=== PATIENT | female | born 1975 | race Caucasian/White ===

== ENCOUNTER 2024-01-03 13:07 | Outpatient (OUT) | payer OTHER, SELFPAY ==
[2024-01-03 13:45] LABS: Basophils Absolute Auto 0.1 10^3/uL (0.0-0.1); Basophils Percent Auto 0.6 % (0.2-2.0); Eosinophils Absolute Auto 0.2 10^3/uL (0.0-0.7); Eosinophils Percent Auto 2.4 % (0.9-7.0); Hematocrit 35.2 % (36.0-48.0); Hemoglobin 10.7 g/dL (12.0-16.0); Immature Granulocytes Abs Auto 0.02 10^3/uL (0.00-0.03); Immature Granulocytes Pct Auto 0.3 % (0.0-0.5); Lymphocytes Absolute Auto 2.5 10^3/uL (1.2-3.8); Lymphocytes Percent Auto 31.2 % (20.5-60.0); Mean Corpuscular HGB Conc 30.4 g/dL (29.9-35.2); Mean Corpuscular Volume 75.7 fL (81.0-99.0); Mean Platelet Volume 10.3 fL (9.5-13.5); Monocytes Absolute Auto 0.6 10^3/uL (0.3-0.8); Monocytes Percent Auto 7.6 % (1.7-12.0); Neutrophils Absolute Auto 4.6 10^3/uL (1.4-6.5); Neutrophils Percent Auto 57.9 % (43.0-75.0); Platelet Count 335 10^3/uL (150-450); Red Blood Count 4.65 10^6/uL (4.20-5.40); Red Cell Distribution Width 16.2 % (11.0-15.0); White Blood Count 7.9 10^3/uL (4.0-11.0)
[2024-01-03 14:57] LABS: Free T4 0.85 ng/dL (0.76-1.46)
[2024-01-03 15:04] LABS: Anion Gap 11.5; Calcium 8.8 mg/dL (8.5-10.1); Carbon Dioxide 28.5 mmol/L (21.0-32.0); Chloride 101 mmol/L (98-107); Estimated GFR (African America >60 (>=60); Estimated GFR (Non-African Ame >60 (>=60); Glucose 87 mg/dL (74-106); Sodium 137 mmol/L (136-145); Thyroid Stimulating Hormone 6.114 uIU/mL (0.358-3.740)
== END 2024-01-03 13:08 | disposition home or self-care (01) ==
PROVIDERS: PCP Family Medicine; Visit Provider Family Medicine
DX: Z00.00 Encounter for general adult medical examination without abnormal findings (principal); E03.9 Hypothyroidism, unspecified; T14.8XXA Other injury of unspecified body region, initial encounter
CPT/HCPCS: 36415; 80048; 84439; 84443; 85025

== ENCOUNTER 2024-07-29 07:06 | Outpatient (OUT) | payer OTHER, SELFPAY ==
--- NOTE | 2024-07-29 07:40 | MM_ITS ---
Patient Name: CJ NEVAREZ MR#: [id number] : 1975 Exam Date: 07/29/2024 Ordering Doctor: DR Ro Toscano M.D. RADIOLOGY REPORT PROCEDURE: MM TOMOSYNTHESIS SCREENING BI COMPARISON: MG MAMM LT UNI W CAD DIG, 09/28/2013. MG MAMM KIMANI DIAG W CAD DIG, 12/25/2012. MG MAMM LT UNI W CAD DIG, 03/20/2001. INDICATIONS: Screening, Z12.31 Calculator Name NCI Breast Cancer Risk Assessment Tool 5 Year Breast Cancer Risk 1.10% Lifetime Breast Cancer Risk 9.90% Personal Breast Cancer No Personal Ovarian Cancer No Treatments None Family Cancers Grandmother-maternal with breast cancer at age ~50; Grandfather-maternal with lung cancer at age ~70. LOCATION: [facility] BREAST COMPOSITION: The breasts are heterogeneously dense,which may obscure small masses. FINDINGS: DIAGNOSTIC CATEGORY 1--NEGATIVE. RIGHT BREAST: No significant suspicious finding. LEFT BREAST: No significant suspicious finding. RECOMMENDATIONS: ROUTINE MAMMOGRAM AND CLINICAL EVALUATION IN 12 MONTHS. PLEASE NOTE: A NORMAL MAMMOGRAM DOES NOT EXCLUDE THE POSSIBILITY OF BREAST CANCER. A CLINICALLY SUSPICIOUS PALPABLE LUMP SHOULD BE BIOPSIED. Dictated by: Gustabo Villagran M.D. on 07/31/2024 at 10:46 Approved by: Gustabo Villagran M.D. on 07/31/2024 at 10:50
== END 2024-07-29 07:07 | disposition home or self-care (01) ==
LOC: MAMMO 07:06
PROVIDERS: PCP Family Medicine; Visit Provider Family Medicine
DX: Z12.31 Encounter for screening mammogram for malignant neoplasm of breast (principal); E03.9 Hypothyroidism, unspecified; Z80.3 Family history of malignant neoplasm of breast; Z80.1 Family history of malignant neoplasm of trachea, bronchus and lung
CPT/HCPCS: 36415; 77063; 77067; 84439; 84443

== ENCOUNTER 2024-07-29 07:32 | Outpatient (OUT) | payer OTHER, SELFPAY ==
[2024-07-29 08:27] LABS: Thyroid Stimulating Hormone 3.919 uIU/mL (0.358-3.740)
[2024-07-29 08:54] LABS: Free T4 1.01 ng/dL (0.76-1.46)
== END 2024-07-29 07:33 | disposition home or self-care (01) ==
PROVIDERS: PCP Family Medicine; Visit Provider Family Medicine
DX: E03.9 Hypothyroidism, unspecified (principal)
CPT/HCPCS: 36415; 84439; 84443

== ENCOUNTER 2024-10-20 12:23 | Outpatient (OUT) | payer OTHER, SELFPAY ==
[2024-10-20 13:40] LABS: Free T4 1.31 ng/dL (0.76-1.46)
[2024-10-20 14:26] LABS: Anion Gap 10.7; Carbon Dioxide 31.2 mmol/L (21.0-32.0); Chloride 101 mmol/L (98-107); Potassium 3.9 mmol/L (3.5-5.1); Sodium 139 mmol/L (136-145)
[2024-10-20 14:27] LABS: Alanine Aminotransferase 23 U/L (14-59); Albumin Globulin Ratio 0.9; Albumin Level 3.6 g/dL (3.4-5.0); Alkaline Phosphatase 97 U/L (46-116); Aspartate Amino Transferase 15 U/L (15-37); BUN Creatinine Ratio 10.5; Bilirubin Total 0.3 mg/dL (0.2-1.0); Calcium 9.2 mg/dL (8.5-10.1); Chol HDL Ratio 3.4; Cholesterol 224 mg/dL (<=200); Estimated GFR (African America >60 (>=60 mL/min/1.73m^2); Estimated GFR (Non-African Ame >60 (>=60 mL/min/1.73m^2); Globulin 4.1 g/dL; Glucose 91 mg/dL (74-106); HDL Cholesterol 65 mg/dL (40-60); Thyroid Stimulating Hormone 2.797 uIU/mL (0.358-3.740); Total Protein 7.7 g/dL (6.4-8.2); Triglycerides 122 mg/dL (<=150); VLDL CHOLESTEROL 24.4 mg/dL
== END 2024-10-20 12:24 | disposition home or self-care (01) ==
LOC: LAB 12:25
PROVIDERS: PCP Family Medicine; Visit Provider Family Medicine
DX: Z00.00 Encounter for general adult medical examination without abnormal findings (principal); E03.9 Hypothyroidism, unspecified; R03.0 Elevated blood-pressure reading, without diagnosis of hypertension
CPT/HCPCS: 36415; 80053; 80061; 84439; 84443

== ENCOUNTER 2025-02-12 16:32 | Outpatient (OUT) | payer OTHER, SELFPAY ==
--- NOTE | 2025-02-12 | XR_ITS ---
[facility] [place] [id number] Patient Name: CJ NEVAREZ MRN: [id number] date: 1975 Sex: F Assigned Patient Location: [facility] Current Patient Location: [facility] Accession/Order Number: [id number] Exam Date: 02/12/2025 16:50 Report Date: 02/12/2025 20:18 At the request of: NINO KWONG MD Procedure: XR knee RT 4V XR knee RT 4V 02/12/2025 4:56 PM SIGNS AND SYMPTOMS: ^Right knee pain PROTOCOL: Frontal, lateral, and oblique radiographs of the right knee COMPARISON: None FINDINGS: The weightbearing and patellofemoral joint spaces are preserved. There is no fracture or dislocation. No soft tissue swelling or joint effusion. XR/XR knee RT 4V IMPRESSION: No acute bony injury. No significant degenerative change. Impression dictated by: Wyatt Matthews M.D. 02/12/2025 8:18 PM Dictation Location: [place] [id number] Electronically authenticated by: [id number] Y Date: 02/12/2025 20:18
--- OUTSIDE RECORDS SUMMARY | 2025-02-12 16:39 | XMS_ITS | CCD ---
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 vol] 9.8 fL Normal 9.5-13.5 The [facility] Comment on above: Performed By: #### C BC #### [facility] [address] [place] [address] Kathy Miranda PLT 352 103/ul Normal 150-450 [facility] Comment on above: Performed By: #### C BC #### [facility] [address] [place] [address] Kathy Miranda RBC 4.71 106/ul Normal 4.20-5.40 [facility] Comment on above: Performed By: #### C BC #### [facility] [address] [place] [address] Kathy Miranda WBC 6.3 103/ul Normal 4.0-11.0 [facility] Comment on above: Performed By: #### C BC #### [facility] [address] [place] [address] Kathy Miranda D-DIMERon 11-09-2020 D-DIMER 0.30 mg/L FEU Normal 0.19-0.50 The [facility] Comment on above: Performed By: #### D DIM #### [facility] [address] [place], [place] [phone] Kathy Miranda D-DIMER COMMENTS SEE BELOW Normal The [facility] Comment on above: Result Comment: Incr eases in D-Dimer concentration observed with thromboembolic events can be variable due to localization, size, and age of the thrombus. Therefore, a thromboembolic event cannot be diagnosed with certainty on the basis of the reference range. D-Dimers may also be elevated for a variety of disorders including: advanced age, , coronary disease, cancer, liver disease, infection, inflammation, hematoma, DIC, trauma, post-surgery, diabetes, thrombolytic or anticoagulant therapy, stress, and generalized hospitalization. Performed By: #### D DIM #### [facility] [address] [place] [address] Kathy Miranda PROF CHEM 8 (BAS METB)on Anion gap [Moles/Vol] 10.4 mmol/L Normal Th e [facility] Comment on above: Performed By: #### B MP #### [facility] [address] [place] [address] Kathy Ruth Calcium [Mass/Vol] 8.8 mg/dL Normal 8.4-10.2 The [facility] Comment on above: Performed By: #### B MP #### [facility] [address] [place] [address] Kathy Ruth Chloride [Moles/Vol] 101 mmol/L Normal 98-107 The [facility] Comment on above: Performed By: #### B MP #### [facility] [address] [place] [address] Kathy Ruth CO2 [Moles/Vol] 29.5 mmol/L Normal 22.0-30.0 [facility] Comment on above: Performed By: #### B MP #### [facility] [address] [place] [address] Kathy Ruth Creatinine [Mass/Vol] 0.89 mg/dL Normal 0.52-1.04 [facility] Comment on above: Performed By: #### B MP #### [facility] [address] [place] [address] Kathy Ruth EGFR-AF MALAWIAN >60 Normal >=60 The [facility] Comment on above: Performed By: #### B MP #### [facility] [address] [place] [address] Kathy Ruth EGFR-NON AF MALAWIAN >60 Normal >=60 The [facility] Comment on above: Performed By: #### B MP #### [facility] [address] [place] [address] Kathy Ruth Glucose [Mass/Vol] 94 mg/dL Normal 74-106 The [facility] Comment on above: Performed By: #### B MP #### [facility] [address] [place] [address] Kathy Ruth Potassium [Moles/Vol] 3.9 mmol/L Normal 3.4-5.0 [facility] Comment on above: Performed By: #### B MP #### [facility] [address] [place], [place] [address] Kathy Ruth Sodium [Moles/Vol] 137 mmol/L Normal 137-145 [facility] Comment on above: Performed By: #### B MP #### [facility] [address] [place], [place] [address] Kathy Ruth Urea nitrogen [Mass/Vol] 10.0 mg/dL Normal 7.0-17.0 [facility] Comment on above: Performed By: #### B MP #### [facility] [address] [place], [place] [address] Kathy Ruth Urea nitrogen/Creatinine [Mass ratio] 11.2 mg/mg Normal [facility] Comment on above: Performed By: #### B MP #### [facility] [address] [place], [place] [address] Kathy Ruth US FRANNIE DOP LEG RTon 11-05-19 US FRANNIE DOP LEG RT Ultrasound venous duplex scan right lower extremity CLINICAL: Right lower extremity swelling. TECHNIQUE: Costa-scale, color-flow, and Spectral Doppler examination of the right lower extremity were performed with and without provocative maneuvers. FINDINGS: Sonographic examination of the right lower extremity deep venous system to include the common femoral, superficial femoral and popliteal veins, demonstrates normal compressibility, color-flow, respiratory variation, and augmentation. The origin and proximal segment of the greater saphenous vein also demonstrates normal compression and color-flow. There is normal color-flow in the peroneal, posterior tibial, and anterior tibial veins. IMPRESSION: 1. No deep venous thrombosis of the right lower extremity. Electronically authenticated by: ABIEL MARTINEZ Date: 2020-11-04 16:27 Normal [facility] Covid-19 PCR (CVDTBH)on 05-17 EUA Statement SEE BELOW Normal The [facility] Comment on above: Result Comment: This test is not yet approved or cleared by the [place] FDA. When there are no FDA-approved or cleared tests available, and other criteria are met, FDA can make tests available under an emergency access mechanism called an Emergency Use Authorization (EUA). The EUA for this test is supported by the [place] of Health and Human Service?s (HHS?s) declaration that circumstances exist to justify the emergency use of in vitro diagnostics for the detection and/or diagnosis of the virus that causes COVID-19. This EUA will remain in effect (meaning this test can be used) for the duration of the COVID-19 declaration justifying emergency of IVDs, unless it is terminated or revoked by FDA (after which the test may no longer be used). When diagnostic testing is negative, the possibility of a false negative should be considered in the context of a patients recent exposures and the presence of clinical signs and symptoms consistent with SARS-CoV-2. Performed By: #### C VDTB #### [facility] [address] [place] [address] Kathymadelyn Miranda SARS-CoV-2 (COVID-19) RNA INA+probe Ql (Unsp spec) Not detected Normal NOT DETECTED The [facility] Comment on above: Result Comment: This test is not yet approved or cleared by the [place] FDA. When there are no FDA-approved or cleared tests available, and other criteria are met, FDA can make tests available under an emergency access mechanism called an Emergency Use Authorization (EUA). The EUA for this test is supported by the [place] of Health and Human Service's (HHS's) declaration that circumstances exist to justify the emergency use of in vitro diagnostics for the detection and/or diagnosis of the virus that causes COVID-19. This EUA will remain in effect (meaning this test can be used) for the duration of the COVID-19 declaration justifying emergency of IVDs, unless it is terminated or revoked by FDA (after which the test may no longer be used). Performed By: #### C VDTB #### [facility] [address] [place] [address] Kathy Miranda Vital Signs Date Time Vital Sign Value Performing Clinician Facility 02-12-2025 09:34-0400 Body height 160.02 cm Ro Kwong MD Work Phone: [facility] 02-12-2025 09:34-0400 Body mass index (BMI) [Ratio] 37.9 kg/m2 Ro Kwong MD Work Phone: [facility] 02-12-2025 09:34-0400 Body weight 97.06 kg Ro Kwong MD Work Phone: [facility] 02-12-2025 09:34-0400 Diastolic blood pressure 82 mm[Hg] Ro Kwong MD Work Phone: [facility] 02-12-2025 09:34-0400 Heart rate 73 /min Ro Kwong MD Work Phone: [facility] 02-12-2025 09:34-0400 Respiratory rate 12 /min Ro Kwong MD Work Phone: [facility] 02-12-2025 09:34-0400 SaO2% (BldA) [Mass fraction] 99 % Ro Kwong MD Work Phone: [facility] 02-12-2025 09:34-0400 Systolic blood pressure 123 mm[Hg] Ro Kwong MD Work Phone: [facility] 11-25-2024 13:50-0400 Body height 160 cm Amaury Macias DPM Work Phone: [facility] 11-25-2024 13:50-0400 Body mass index (BMI) [Ratio] 38.97 kg/m2 Amaury Macias DPM Work Phone: [facility] 11-25-2024 13:50-0400 Body weight 99.79 kg Amaury Macias DPM Work Phone: [facility] 11-25-2024 13:50-0400 Respiratory rate 16 /min Amaury Macias DPM Work Phone: [facility] 11-13-2024 09:48-0400 Body height 160 cm [employer]OT[employer] FEEDER-WEED ERADICATOR Work Phone: [facility] 11-13-2024 09:48-0400 Body mass index (BMI) [Ratio] 40.44 kg/m2 Deborah [employer]WEED ERADICATOR Work Phone: [facility] 11-13-2024 09:48-0400 Body weight 103.56 kg Deborah [employer]WEED ERADICATOR Work Phone: [facility] 11-13-2024 09:48-0400 Diastolic blood pressure 84 mm[Hg] Deborah Goodson APRN-WEED ERADICATOR Work Phone: [facility] 11-13-2024 09:48-0400 Heart rate 70 /min Deborah Goodson APRN-WEED ERADICATOR Work Phone: [facility] 11-13-2024 09:48-0400 SaO2% (BldA) [Mass fraction] 99 % Deborah Goodson APRN-WEED ERADICATOR Work Phone: [facility] 11-13-2024 09:48-0400 Systolic blood pressure 150 mm[Hg] Deborah Goodson APRN-WEED ERADICATOR Work Phone: [facility] 10-20-2024 11:33-0400 Body height 160.02 cm [facility] 10-20-2024 11:33-0400 Body mass index (BMI) [Ratio] 39.3 kg/m2 [facility] 10-20-2024 11:33-0400 Body weight 100.81 kg [facility] 10-20-2024 11:33-0400 Diastolic blood pressure 93 mm[Hg] [facility] 10-20-2024 11:33-0400 Heart rate 69 /min [facility] 10-20-2024 11:33-0400 Systolic blood pressure 160 mm[Hg] [facility] 09-16-2024 12:05-0400 Body height 160 cm P[facility] 1 [facility] 09-16-2024 12:05-0400 Body mass index (BMI) [Ratio] 38.79 kg/m2 [facility] 1 [facility] 09-16-2024 12:05-0400 Body weight 99.34 kg Pmh 1 [facility] 07-23-2024 10:22-0500 Body height 160.02 cm [facility] 07-23-2024 10:22-0500 Body mass index (BMI) [Ratio] 38.8 kg/m2 [facility] 07-23-2024 10:22-0500 Body weight 99.45 kg [facility] 07-23-2024 10:22-0500 Diastolic blood pressure 85 mm[Hg] [facility] 07-23-2024 10:22-0500 Heart rate 70 /min [facility] 07-23-2024 10:22-0500 Systolic blood pressure 146 mm[Hg] [facility] 12-30-2023 08:24-0400 Body height 160.02 cm [facility] 12-30-2023 08:24-0400 Body mass index (BMI) [Ratio] 37.3 kg/m2 [facility] 12-30-2023 08:24-0400 Body weight 95.7 kg [facility] 12-30-2023 08:24-0400 Diastolic blood pressure 80 mm[Hg] [facility] 12-30-2023 08:24-0400 Heart rate 75 /min [facility] 12-30-2023 08:24-0400 Systolic blood pressure 132 mm[Hg] [facility] 08-28-2023 08:44-0400 Body height 160.02 cm MD Ro Kwong Work Phone: [facility] 08-28-2023 08:44-0400 Body mass index (BMI) [Ratio] 36.5 kg/m2 MD Ro Kwong Work Phone: [facility] 08-28-2023 08:44-0400 Body temperature 96.8 [degF] MD Ro Kwong Work Phone: [facility] 08-28-2023 08:44-0400 Body weight 93.44 kg MD Ro Kwong Work Phone: [facility] 08-28-2023 08:44-0400 Diastolic blood pressure 76 mm[Hg] MD Ro Kwong Work Phone: [facility] 08-28-2023 08:44-0400 Heart rate 60 /min MD Ro Kwong Work Phone: [facility] 08-28-2023 08:44-0400 Systolic blood pressure 158 mm[Hg] MD Ro Kwong Work Phone: [facility] 03-11-2023 09:45-0400 Body height 160.02 cm Ro Kwong Other [employer] Other 03-11-2023 09:45-0400 Body mass index (BMI) [Ratio] 35.42 kg/m2 Ro Kwong Other [employer] Other 03-11-2023 09:45-0400 Body weight 90.72 kg Ro Kwong Other [employer] Other 03-11-2023 09:45-0400 Diastolic blood pressure 88 mm[Hg] Ro Kwong Other [employer] Other 03-11-2023 09:45-0400 Systolic blood pressure 155 mm[Hg] Ro Kwong Other [employer] Other Encounters Encounter Date Encounter Type Care Provider Facility Start: 02-12-2025 End: 02-12-2025 ambulatory Ro Kwong MD Work Phone: [facility] Work Phone: Start: 02-12-2025 End: 02-12-2025 Patient encounter procedure Ro Kwong MD [facility] Work Phone: Start: 11-25-2024 End: 11-25-2024 Bamboo flowsheet Amaury Macias DPM Work Phone: [facility] Start: 11-25-2024 End: 11-25-2024 Bamboo flowsheet Amaury Macias DPM Work Phone: [facility] Start: 11-25-2024 End: 11-25-2024 Office outpatient visit 15 minutes Amaury Macias DPM Work Phone: [facility] Comment on above: Peroneal tendinitis, left (Primary Dx); Plantar fasciitis; Contracture of left ankle; Contracture of right ankle Start: 11-25-2024 End: 11-25-2024 ambulatory AMAURY MACIAS Not Available Start: 11-13-2024 End: 11-13-2024 Telephone encounter Kelsie CLIFTON [facility] Start: 11-13-2024 End: 11-13-2024 Office outpatient new 45 minutes [facility] [employer] ERADICATOR Work Phone: [facility] Comment on above: EUNICE (obstructive sle ep apnea) (Primary Dx); BMI 40.0-44.9, adult ([facility]); Obesity, morbid, BMI 40.0-49.9 ([facility]) Start: 11-13-2024 End: 11-13-2024 [facility] Start: 11-05-2024 End: 11-05-2024 ambulatory AMAURY MACIAS Not Available Start: 10-20-2024 End: 10-20-2024 ambulatory [facility] Work Phone: Start: 10-20-2024 End: 10-20-2024 Patient encounter procedure Counts Include [address] [facility] Physician [facility] Work Phone: Start: 10-05-2024 End: 01-03-2025 Refill Sravan Abdi DO Work Phone: [facility] Comment on above: Hiatal hernia; Heartburn Start: 09-16-2024 End: 09-20-2024 Clinical Support [facility] 1 [facility] Comment on above: Sleep apnea, unspeci fied type Start: 08-09-2024 End: 08-09-2024 Telephone encounter Lorin Quintero [facility]ician [facility]Sleep Medicine Start: 07-29-2024 Non-patient / Non-visit Counts Include [address] [facility] Physician [facility] Work Phone: Start: 07-24-2024 End: 07-24-2024 Telephone encounter Ro Kwong MD Work Phone: [facility] Comment on above: Sleep Lab ([facility]ST) Start: 07-23-2024 End: 07-23-2024 ambulatory [facility] Work Phone: Start: 07-23-2024 End: 07-23-2024 Patient encounter procedure Counts Include [address] [facility] Physician [facility] Work Phone: Start: 01-24-2024 End: 01-24-2024 ambulatory SRAVAN ABDI Not Available Start: 01-16-2024 End: 02-25-2024 External Result Encounter Sravan Abdi DO Work Phone: [facility] Unsolicited Start: 01-16-2024 End: 02-25-2024 External Result Encounter Sravan Abdi DO Work Phone: [facility] Unsolicited Start: 01-16-2024 End: 01-16-2024 ambulatory Sravan Abdi [facility] Work Phone: Start: 01-16-2024 End: 01-16-2024 Departed Referred DO Sravan Abdi Work Phone: [facility] Work Phone: Start: 01-03-2024 Non-patient / Non-visit DO Adriana Abdi Work Phone: [facility] Work Phone: Start: 12-30-[address] [facility] Start: 12-30-2023 End: 12-30-2023 ambulatory [facility] Work Phone: Start: 12-30-2023 End: 12-30-2023 Encounter for general adult medical examination without abnormal findings [facility] Start: 12-30-2023 End: 12-30-2023 Patient encounter procedure Counts Include [address] [facility] Physician [facility] Work Phone: Start: 12-27-2023 End: 12-27-2023 ambulatory SRAVAN ABDI Not Available Start: 09-16-2023 End: 09-16-2023 ambulatory MD Ro Kwong Work Phone: [facility] Work Phone: Start: 09-16-2023 End: 09-16-2023 Patient encounter procedure MD Ro Kwong Work Phone: [facility]-CT Scan [facility] [place] Work Phone: Start: 08-30-2023 End: 08-30-2023 ambulatory MD Ro Kwong Work Phone: [facility] Work Phone: Start: 08-30-2023 End: 08-30-2023 Patient encounter procedure MD Ro Kwong Work Phone: [facility]-Ultrasound [facility] [place] Work Phone: Start: 08-28-2023 End: 08-28-2023 Patient encounter procedure MD Ro Kwong Work Phone: [facility] [address] [facility] Physician [facility] Work Phone: Start: 08-20-2023 Non-patient / Non-visit MD Janell Kwong Work Phone: [facility] Include [address] [facility] Physician [facility] Work Phone: Start: 07-19-2023 End: 07-19-2023 ambulatory Ro Kwong Other [employer] Other Start: 07-19-2023 Telephone encounter Ro Kwong [facility] Start: 06-12-2023 End: 06-12-2023 ambulatory Ro Kwong Other [employer] Other Start: 06-12-2023 Telephone encounter Ro Kwong [facility] Start: 05-08-2023 End: 05-08-2023 ambulatory Ro Kwong Other [employer] Other Start: 05-08-2023 Telephone encounter Ro Kwong [facility] Start: 04-05-2023 End: 04-05-2023 ambulatory Ro Kwong Other [employer] Other Start: 04-05-2023 Telephone encounter Ro Kwong [facility] Start: 03-11-2023 End: 03-11-2023 ambulatory Ro Kwong Other [employer] Other Start: 03-11-2023 Office outpatient vi sit 15 minutes Ro Kwong [facility] Start: 03-04-2023 End: 03-04-2023 ambulatory Ro Kwong Other [employer] Other Start: 03-04-2023 Telephone encounter Ro Kwong [facility] Start: 01-29-2023 End: 01-29-2023 ambulatory Ro Kwong Other [employer] Other Start: 01-29-2023 Telephone encounter Ro Kwong [facility] Start: 12-26-2022 End: 12-26-2022 ambulatory Ro Kwong Other [employer] Other Start: 12-26-2022 Telephone encounter Ro Kwong [facility] Start: 11-09-2020 End: 11-10-[address] RO KWONG Facility:[facility] Start: 11-04-2020 End: 11-04-[address] SHILPI HOWARD Facility:[facility] Start: 08-29-2020 End: 03-22-[address] RO KWONG Facility:[facility] Start: 05-27-2020 End: 05-28-[address] ONEIL FRY Facility:[facility] Procedures Date Procedure Procedure Detail Performing Clinician Start: 01-16-2024 PATHOLOGY REQUEST FO R LAB DEANNA Sravan Abdi DO Work Phone: Start: 09-16-2023 Computed tomography of abdomen and pelvis with contrast MD Ro Kwong Work Phone: Start: 08-30-2023 US scan of gallbladder MD Ro Kwong Work Phone: Plan of Treatment Date Care Activity Detail Author Start: 04-28-2028 DTaP,Tdap and Td Vac cines (2 - Td or Tdap) DTaP,Tdap and Td Vaccines (2 - Td or Tdap) [facility] Start: 11-13-2025 Adult BMI Screening Adult BMI Screen ing [facility] Start: 11-13-2025 Tobacco Screening Tobacco Screening [facility] Start: 02-17-2025 End: 02-17-2025 Patient encounter procedure 02/17/2025 1:15 PM EDT Office Visit [facility] [address] [address] [facility] [place] [phone] Deborah Goodson, [employer]WEED ERADICATOR [address] [place] [address], [address] [address] [facility] Start: 02-15-[address] [facility] Start: 11-25-2024 End: 11-25-2024 Patient encounter procedure 11/25/2024 2:00 PM EDT Office Visit [facility] [address] [place] [address] Amaury Macias DPM [address] [address] Peroneal tendinitis, left (Primary Dx); Plantar fasciitis; Contracture of left ankle; Contracture of right ankle [facility] Comment on above: Peroneal tendinitis, left (Primary Dx); Plantar fasciitis; Contracture of left ankle; Contracture of right ankle Start: 11-13-2024 End: 11-13-2024 Patient encounter procedure 11/13/2024 10:00 AM EDT Office Visit [facility] [address] [place] [phone] Deborah Goodson, [employer]WEED ERADICATOR [address] [facility], [address] [address] [facility] Start: 10-20-2024 Patient referral [facility] Work Phone: Start: 09-16-2024 End: 09-16-2024 Clinical Support 09/16/2024 12:00 PM EDT Clinical Support [facility] [address] [place] [address] [facility] Start: 02-16-2024 COVID-19 Vaccine () COVID-19 Vaccine () [facility] Start: 02-16-2024 Influenza vaccination [facility] Start: 01-16-2024 [facility] Start: 12-30-2023 Patient referral [facility] Work Phone: Start: 2023 Administration of varicella zoster vaccine Zoster (Shingles) Vaccine (1 of 2) [facility] Start: 2013 Screening for malign ant neoplasm of breast Mammogram [facility] Start: 2003 Screening for malign ant neoplasm of cervix [facility] Start: 1994 Screening for malign ant neoplasm of cervix Pap Smear [facility] Start: 1992 DTaP,Tdap and Td Vac cines (1 - Tdap) DTaP,Tdap and Td Vaccines (1 - Tdap) [facility] Start: 1991 Adult BMI Follow Up Plan Adult BMI Follow Up Plan [facility] Start: 1991 Adult BMI Screening Adult BMI Screen ing [facility] Start: 1985 Depression Screening Depression Scre ening [facility] Start: 1985 Tobacco Screening Tobacco Screening [facility] Start: 1973 Screening for malign ant neoplasm of colon [facility] Comprehensive metabo lic 2000 panel - Serum or Plasma [facility] MG Breast - bilatera l Screening [facility] Patient referral [facility] Work Phone: XR Knee - right 4 Views [place] [facility] Immunizations Immunization Date Immunization Notes Care Provider Fa cility 11-14-2018 influenza, injectabl e, quadrivalent, preservative free Sravan Abbeyfay DO Work Phone: [facility] 11-14-2018 influenza virus vacc ine, unspecified formulation Sravan Laffay DO Work Phone: [facility] 04-28-2018 Influenza, injectabl e, [place]in [place] Canine Kidney, preservative free, quadrivalent Sravan Laffay DO Work Phone: [facility] 04-28-2018 tetanus toxoid, redu ara diphtheria toxoid, and acellular pertussis vaccine, adsorbed Sravan Abbeyfay DO Work Phone: [facility] Healthcare Payers Date Payer Category Payer Self-pay [id number] 2021 Commercial Managed C are - PPO [id number] 2021 Private Health Insurance [employer] [id number] 2021 Unknown [employer] [id number] 2021-Present [address] [place] [address] [id number] 1973 Unknown [id number] [id number]. 593 1973 Unknown [id number] [id number]. 593 1973 Unknown [id number] [id number]. 593 1973 Unknown [id number] [id number]. 593 1973 Unknown [id number] [id number]. 1286 1973 Unknown [id number] [id number]. 1286 1973 Unknown [id number] [id number]. 1259 1973 Unknown [id number] [id number]. 1259 1973 Unknown [id number] [id number]. 1259 1973 Unknown [id number] [id number]. 1259 1959 Unknown [id number] Unknown [facility] [id number] Unknown [id number]. 531 Social History Date Type Detail Facility Unknown if ever smoked [facility] Other Start: 01-24-2024 End: 11-25-2024 Sex Assigned At [facility] Other Start: 03-11-2023 End: 10-29-2023 Tobacco smoking status NHIS Never smoked tobacco (finding) [facility] Start: 1975 Sex Assigned At Female [facility] Start: 10-29-2023 End: 11-13-2024 Tobacco use and exposure Smokeless tobacco non-user [facility] Healthcare Start: 12-27-2023 End: 01-24-2024 Alcoholic beverage intake Current drinker of alcohol (finding) [facility] Healthcare Start: 12-27-2023 End: 11-25-2024 Alcoholic beverage intake [facility] Healthcare Start: 1975 Sex assigned at Not on file [facility] Start: 01-20-2015 End: 07-23-2024 Sex Female (finding) [facility] Tobacco smoking status NHIS Tobacco smoking consumption unknown [facility] Childcare Unknown [facility] Start: 11-13-2024 Alcohol Comment once a month [facility] NEGATED: Highlighted row [facility] Clinical Notes 12-26-2022 to 11-13-2024 Telephone Encounter - ETIENNE Fernandez - 11/13/2024 2:04 PM EDTTelephone Encounter - ETIENNE Fernandez - 11/13/2024 2:04 PM EDTSlibra Goodson APRN-EDILBERTO - 11/13/2024 10:00 AM EDT Note Date & Type Note Facility 11-13-2024 Miscellaneous Notes Formattin g of this note might be different from the original. PAP machine and supplies order with supportive documentation faxed to [facility]. documented in this encounter [facility] 11-13-2024 Telephone encount er Note PAP machine and supplies order with supportive documentation faxed to [facility]. [facility] 11-13-2024 History of Presen t illness Narrative Images from the original note were not included. Chief Complaint: Viki Michel is a 49 y.o. female present for initial visit regarding suspected EUNICE. HPI Sleep Questionnaire 11/13/2024 9:57 AM EDT - Filed by ETIENNE Fernandez Have you previously had a sleep study? Yes Do you have a partner (girlfriend/boyfriend, spouse, etc) ? Yes Do you or your bed partner currently notice any of the following symptoms? Excessive daytime sleepiness Yes Frequent snoring Yes Snore yourself awake from sleep Yes Witnessed apneas (holding breath during sleep) No Waking up choking, gasping or short of breath Yes Excessively sweating overnight Yes Waking up with dry mouth or sore throat Yes Morning headaches Yes Waking up to urinate at night Yes Nighttime heartburn interfering with sleep No Frequent disturbing dreams or nightmares No Sleep walking No Unusual behaviors during sleep Yes Injury to yourself or partner during sleep No Imagine seeing or hearing things that are not real as you fall asleep or wake up No Momentary inability to move body (paralysis) as falling askeep or waking up No Insomnia (difficulty falling asleep or staying asleep) Yes Teeth clenching/grinding Yes Waking up disoriented / confused Yes Do you currently receive medical equipment for sleep conditions? No Have you had any other treatments for sleep apnea? No How likely are you to doze off or fall asleep in the following situations, in contrast to feeling just tired? Sitting and reading moderate chance of dozing Watching TV slight chance of dozing Sitting inactive in a public place (e.g. a theater or a meeting) no chance of dozing As a passenger in a car for an hour without a break moderate chance of dozing Lying down to rest in the afternoon when circumstances permit high chance of dozing Sitting and talking to someone no chance of dozing Sitting quietly after a lunch without alcohol slight chance of dozing In a car, while stopped for a few minutes in traffic slight chance of dozing Weekday Sleep Schedule What time do you get into bed? 11:00 PM What time do you try to go to sleep? 11:00 PM Time it takes to fall asleep (minutes) 60 What time do you wake up? 5:30 AM What time do you get out of bed? 5:45 AM Weekend Sleep Schedule What time do you get into bed? 10:30 PM What time do you try to go to sleep? 10:30 PM Time it takes to fall asleep (minutes) 60 What time do you wake up weekends? 3:30 AM What time do you get out of bed? 9:00 AM Do you watch TV, read or use phone/computer in bed? No Number of tgtghv-[id number]-night awakenings per night? 4 Cause of awakenings (if applicable): unknown Total average number of hours of sleep per night: 4 How many naps do you take a day and for how long? not during school year, however when not in school takes 1 nap for 20-25 minutes Do you feel refreshed after your naps? Sometimes Do you do shift work or work overnights? No 09/16/24 HST MARTY 54.6 Min SpO2 76% ETOH: 1 time per month 1 glass Marijuana: none Caffeine: 3 per day Tobacco: none Family history of EUNICE: none Denies any dyspnea, fevers, chills, chest pain or hemoptysis. [facility] SLEEPINESS SCALE 11/13/2024 9:00 AM 09/16/2024 12:08 PM [place] Sleepiness Scale Sitting and Reading 2 2 Watching TV 1 1 Sitting inactive in a public place (theater, meeting) 0 0 As a passenger in a car for an hour without a break 2 2 Lying down in the afternoon to rest 3 3 Sitting and talking to someone 0 0 Sitting quietly after lunch (without alcohol) 1 2 In a car, while stopped for a few minutes in traffic 1 1 Total 10 11 OARRS REVIEWED Reviewed: no PMH PERTINENT HISTORY Her pertinent medical history includes Past Medical History: Diagnosis Date Acid reflux Allergies Depression Hypothyroidism CURRENT MEDICATIONS Reviewed with patient. Current Outpatient Medications: cetirizine (ZyrTEC) 10 mg tablet, Take 1 tablet (10 mg total) by mouth daily., Disp: , Rfl: omeprazole (PriLOSEC) 40 mg capsule, Take 1 capsule (40 mg total) by mouth daily., Disp: , Rfl: SYNTHROID 88 mcg tablet, Take 1 tablet (88 mcg total) by mouth daily., Disp: , Rfl: venlafaxine XR (EFFEXOR XR) 75 mg 24 hr capsule, Take 1 capsule (75 mg total) by mouth daily., Disp: , Rfl: Vitals: 11/13/24 0948 BP: 150/84 Pulse: 70 SpO2: 99% Weight: 103.6 kg (228 lb 4.8 oz) Height: 160 cm (5' 3 ) ALLERGIES Reviewed with patient. Penicillins FAMILY HISTORY Family History Problem Relation Age of Onset Hypertension Mother Arthritis Father Hypotension Father Prostate cancer Father SOCIAL HISTORY Social History Socioeconomic History Marital status: Spouse name: Porfirio Number of children: 4 Tobacco Use Smoking status: Never Smokeless tobacco: Never Vaping Use Vaping status: Never Used Substance and Sexual Activity Alcohol use: Yes Alcohol/week: 1.0 standard drink of alcohol Types: 1 Glasses of wine per week Comment: once a month Drug use: Never Social Drivers of Health Food Insecurity: No Food Insecurity (11/13/2024) Hunger Screening Food Insecurity - Worry: Never True Food Insecurity - Inability: Never True TRAVEL HISTORY Denies recent travel. ROS All 11 systems have been reviewed: Review of Systems Constitutional: Positive for fatigue. Negative for chills and fever. Respiratory: Negative for cough, shortness of breath and wheezing. Cardiovascular: Negative for chest pain/discomfort. All other systems are reviewed and are negative except as noted. PHYSICAL EXAM Vital signs BP 150/84 Pulse 70 Ht 160 cm (5' 3 ) Wt 103.6 kg (228 lb 4.8 oz) SpO2 99% BMI 40.44 kg/m Physical Exam Vitals and nursing note reviewed. Constitutional: Appearance: Normal appearance. She is obese. Cardiovascular: Heart sounds: Normal heart sounds. Pulmonary: Breath sounds: Normal breath sounds. Musculoskeletal: Cervical back: Neck supple. Skin: General: Skin is warm and dry. Neurological: Mental Status: She is alert and oriented to person, place, and time. Psychiatric: Mood and Affect: Mood normal. Behavior: Behavior normal. PERTINENT LAB RESULTS IMAGING no studies completed Patient was never admitted. No results found. IMPRESSION Suspected obstructive sleep apnea syndrome A.M. Fatigue Excessive daytime sleepiness Obesity Body mass index is 40.44 kg/m . Depression GERD PLAN Discussed diagnosis, its evaluation, treatment and usual course. All questions answered. Educational material distributed. Consideration of CO2 monitoring (if BMI > 35 and serum CO2 > 27: BMI Readings from Last 1 Encounters: 11/13/24 40.44 kg/m ] No orders of the defined types were placed in this encounter. Orders Placed or Reconciled This Encounter Medications SYNTHROID 88 mcg tablet Sig: Take 1 tablet (88 mcg total) by mouth daily. venlafaxine XR (EFFEXOR XR) 75 mg 24 hr capsule Sig: Take 1 capsule (75 mg total) by mouth daily. omeprazole (PriLOSEC) 40 mg capsule Sig: Take 1 capsule (40 mg total) by mouth daily. cetirizine (ZyrTEC) 10 mg tablet Sig: Take 1 tablet (10 mg total) by mouth daily. She will start APAP 5-20 cm H20 pressure. DME: [facility] Diet and exercise were discussed in detail Any age-appropriate routine screenings to be completed per PCP Follow up in 3 Months time. If her condition should change prior to this she is encouraged to give our office a call. EDUCATION: Pathophysiology of EUNICE was explained. Health risks associated with untreated EUNICE were discussed (cardiopulmonary, cerebrovascular, and anesthesia/sedative-related). Risks associated with excessive daytime sleepiness, particularly while driving/operating machinery were discussed. The patient was instructed to avoid such activities if feeling sleepy, and to stop the activity if sleepiness occurs (gut puller at the next safe opportunity if driving). EUNICE treatment options were discussed. CPAP is the most predictably effective treatment. If indicated and prescribed, CPAP must be used every night, all night for full benefits. It may take several weeks until fully accustomed to using the treatment, and before benefits (improved sleep quality and daytime alertness) are noticeable. Potential problems with CPAP were reviewed. Interim measures to reduce obstructive sleep apnea severity were recommended (avoidance of the supine position and elevation of the upper body and during sleep). CC: No primary care provider on file. Deborah Pollard [facility] Office: [phone] 9:57 AM on 11/13/2024 This note is dictated with the use of M*Modal.Please note that this dictation was completed with computer voice recognition software. Quite often unanticipated grammatical, syntax, homophones, and other interpretive errors are inadvertently transcribed by the computer software. Please disregard these errors. Please excuse any errors that have escaped final proofreading. YUMIKO Piedra 11/13/24 1007 documented in this encounter [employer] 11-13-2024 Instructions YUMIKO Piedra - 11/13/2024 10:00 AM EDT If you re looking for general health and wellness resources, please [email or web address] documented in this encounter [facility] 08-09-2024 Miscellaneous Notes Formattin g of this note is different from the original. From 07/24/24 sleep lab enocunter: Sleep Lab (HST) (Newest Message First) View All Conversations on this Encounter Ena Kumar MD routed conversation to You; [facility] Front Desk2 days ago OK for HST PPG read/follow HST currently scheduled on 09/16 documented in this encounter [facility] 08-09-2024 Telephone encount er Note From 07/24/24 sleep lab enocunter: Sleep Lab (HST) (Newest Message First) View All Conversations on this Encounter Ena Kumar MD routed conversation to You; [facility] Front Desk2 days ago OK for HST PPG read/follow [facility] 08-09-2024 Telephone encount er Note HST currently scheduled on 09/16 [facility] 07-24-2024 Miscellaneous Notes Formattin g of this note might be different from the original. 07/24 Order received Called office for DX code on order, left message Notes in MM, need good order Number for Doug Kwong office: [phone] documented in this encounter [facility] 07-24-2024 Telephone encount er Note 07/24 Order received Called office for DX code on order, left message Notes in MM, need good order Number for Doug Kwong office: [phone] [facility] 07-23-2024 Chief complaint+R henok for visit Narrative sleep study referral July 23, 2024 10:19am left foot pain October 20, 2024 11:30a m Reason for Visit Admit Date Depression July 23, 2024 1 0:19am Hypothyroidism July 23, 2024 1 0:19am Migraine July 23, 2024 1 0:19am Screening mammogram for breast cancer [facility]2024 10:19am Sleep apnea July 23, 2024 1 0:19am Bilateral foot pain October 20, 2024 11:30a m Depression October 20, 2024 11:30a m Elevated blood-pressure read ing, without diagnosis of hypertension October 20, 2024 11:30am Hypothyroidism October 20, 2024 11:30a m [facility] Work Phone: 1(775) 417-977502-06-2025 Evaluation note* Diagnosis Onset Date Resolution Status Admit Date Depression acute July 23, 2024 10:19am Hypothyroidism acute July 232024 10:19am Migraine acute July 23, 2024 10:19am Screening mammogram for [facility] cancer acute July 23 10:19am Sleep apnea acute July 23, 2024 10:19am Bilateral foot pain acute October 202024 11:30am Depression acute October 20, 2024 11:30am Elevated blood-pressure reading, without diagnosis of hypertension acute October 20, 2024 11 :30am Hypothyroidism acute October 20, 11:30am [facility] Work Phone: 1(889) 831-214102-02-2024 Evaluation note* Encounter Date Diagnosis Assessment Notes Treatment Notes Treatment Clinical Notes Jul, Adult ADHD (ICD-10 - F90.9) [facility] Other 12-27-2023 Evaluation note* Encounter Date Diagnosis Assessment Notes Treatment Notes Treatment Clinical Notes May, Adult ADHD (ICD-10 - F90.9) [facility] Other 11-22-2023 Evaluation note* Encounter Date Diagnosis Assessment Notes Treatment Notes Treatment Clinical Notes Apr, Adult ADHD (ICD-10 - F90.9) [facility] Other 10-20-2023 Evaluation note* Encounter Date Diagnosis Assessment Notes Treatment Notes Treatment Clinical Notes Mar, Adult ADHD (ICD-10 - F90.9) [facility] Other 09-25-2023 Evaluation note* Encounter Date Diagnosis Assessment Notes Treatment Notes Treatment Clinical Notes Feb, Conjunctivitis of right eye, unspecified conjunctivitis type (ICD-10 - H10.9) pt will contact her eye dr for further exam. she understands that her symptoms and appearance do not appear to be bacterial conjunctivitis. Will cover with antibiotics in case she cannot be seen there today. [facility] Other 09-18-2023 Evaluation note* Encounter Date Diagnosis Assessment Notes Treatment Notes Treatment Clinical Notes Feb, Adult ADHD (ICD-10 - F90.9) [facility] Other 08-15-2023 Evaluation note* Encounter Date Diagnosis Assessment Notes Treatment Notes Treatment Clinical Notes Jan, Adult ADHD (ICD-10 - F90.9) [facility] Other 07-12-2023 Evaluation note* Encounter Date Diagnosis Assessment Notes Treatment Notes Treatment Clinical Notes Dec, Adult ADHD (ICD-10 - F90.9) [facility] Other chief complaint+Reason for visit Narrative* Chief Complaint Admit Date wellness, sleep study referral July 23, 2024 10:19am Reason for Visit Admit Date Hypothyroidism July 23, 2024 1 0:19am Screening mammogram for breast cancer [facility] 2024 10:19am [facility] Work Phone: Chief complaint+Reason for visit Narrative* Chief Complaint Admit Date sleep study referral July 23, 2024 10:19am Reason for Visit Admit Date Hypothyroidism July 23, 2024 1 0:19am Screening mammogram for breast cancer [facility] 2024 10:19am [facility] Work Phone: Evaluation note* Diagnosis Onset Date Resolution Status RUQ abdominal pain acute [facility] Work Phone: Evaluation note* Diagnosis Onset Date Resolution Status Adult ADHD acute Bruising acute Hypothyroidism acute Wellness examination acute [facility] Work Phone: Evaluation note* Diagnosis Onset Date Resolution Status Admit Date Hypothyroidism acute July 232024 10:19am Screening mammogram for [facility] cancer acute July 23 10:19am [facility] Work Phone: Evaluation note* Diagnosis Sleep apnea, unspecified type [facility] EUNICE (obstructive sleep apnea)- Primary Obstructive sleep apnea (adult) (pediatric) BMI 40.0-44.9, adult ([facility]) Obesity, morbid, BMI 40.0-49.9 ([facility]) [facility] Diagnosis Peroneal tendinitis, left- Primary Plantar fasciitis Plantar fascial fibromatosis Contracture of left ankle Contracture of right ankle documented in this encounter [facility]* Diagnosis Hiatal hernia Diaphragmatic hernia without mention of obstruction or gangrene Heartburn documented in this encounter [facility]* Diagnosis Onset Date Resolution Status Admit Date Right knee pain acute February 122024 9:32am [facility] Work Phone: History general Narrative - Reported* Type Description Date Medical History hypothyroidism Medical History anemia Medical History anxiety Surgical History sinus 1998 Surgical History inner ear reconstruction 1974 Hospitalization History see above surgical histo ry Hospitalization History child [facility] Other History of Present illness Narrative* Amaury Macias DPM - 11/25/2024 2:00 PM EDT Patient: Viki Michel : 1975 PCP: Ro Kwong MD SUBJECTIVE Pt presents today for follow up of left HSS. Pt has had previous treatment of 1st steroid injection, nsaids, stretching with positive relief. Pt states current pain on a 1-10 scale is a 0-1 Pt presents to day for follow up tx. Patient has similar symptoms to the right heel Patient also presents today for follow up of left PB tendonitis. Patient rates pain a 1/10. Pt has been taking nsaids with positive improvement. Patient is not currently covered by insurance for custom orthotics at this time. Allergies: Allergies Allergen Reactions Penicillins Anaphylaxis Past Medical History: Past Medical History: Diagnosis Date Anemia 1989 Arthritis Breast lump Bronchitis Migraine headache ([facility]) Thyroid condition ([facility]) Medications: Current Outpatient Medications: amphetamine-dextroamphetamine XR (Adderall XR) 25 MG 24 hr capsule, Take 25 mg by mouth Daily, Disp: , Rfl: Cetirizine HCl (ZyrTEC ALLERGY) 10 MG capsule, 1 capsule 1 (one) time each day at the same time, Disp: , Rfl: Effexor XR 37.5 MG 24 hr capsule, 1 (one) time each day at the same time, Disp: , Rfl: levothyroxine (Synthroid, Levoxyl) 75 MCG tablet, Take 75 mcg by mouth Daily, Disp: , Rfl: omeprazole (PriLOSEC) [address] capsule, Take 1 capsule (40 mg) by mouth in the morning. Take beforemeals. Do not crush or chew.., Disp: 30 capsule, Rfl: 11 Social History: Social History Socioeconomic History Marital status: Spouse name: Not on file Number of children: Not on file Years of education: Not on file Highest education level: Not on file Occupational History Not on file Tobacco Use Smoking status: Never Smokeless tobacco: Never Substance and Sexual Activity Alcohol use: Yes Alcohol/week: 2.0 standard drinks of alcohol Types: 2 Glasses of wine per week Drug use: Never Sexual activity: Yes Partners: Male control/protection: None Other Topics Concern Not on file Social History Narrative Not on file Social Drivers of Health Financial Resource Strain: Not on file Food Insecurity: Not on file Transportation Needs: Not on file Physical Activity: Not on file Stress: Not on file Social Connections: Not on file Intimate Partner Violence: Not on file Housing Stability: Not on file ROS: General: denies fever, chills, fatigue, malaise Gastrointestinal: denies abdominal pain, ulcers, or changes in appetite or bowel habits Musculoskeletal: denies arthritis, denies loss of strength, pain to hip, knees, back Cardiovascular: denies CP, palpitations, irregular rhythms OBJECTIVE LE EXAM: DERM: Positive hair growth to b/l feet with good skin turgor noted. Negative openings in skin VASC: Palpable pedal pulsed b/l with warm to cool tibia to toes b/l NEURO: Gross sensation intact digits 1-10 and b/l feet ORTHO: 20 degrees inversion and 10 degrees eversion STJ b/l. Ankle ROM less than 10 degrees b/l. negative pain on palpation to left medial calcaneal tubercle negativepain on palpation to right medial calcaneal tubercle minimalpain on palpation to left peroneus brevis tendon near insertion to 5th metatarsal base ASSESSMENT 1. Peroneal tendinitis, left 2. Plantar fasciitis 3. Contracture of left ankle 4. Contracture of right ankle PLAN Patient to continue with oral anti - inflammatories as needed for pain and recommended OTC medications such as tylenol or Ibuprofen Patient is to continue with stretching excercizes daily with patient to continue with night stretching splint or manual stretching. Amaury Macias DPM [facility] instructions Ambulatory Orders* Referral to Psychiatry Time Frame: 12/30/23, Location: None [facility] Work Phone: Hospital Discharge instructionsAmbulatory Orders* Referral to Podiatry Time Frame: 10/20/24, Location: None [facility] Work Phone: InstructionsNot on filedocumented in this encounter [facility] filedocument[facility] in this encounter [facility]ructionsNot on filedocumented in this encounter [facility]InstructionsNot on filedocumented in this encounter [facility] SystemReason for referral (narrative)No reason for referral [facility] Work Phone: Reason for visit Narrative* Misc (Routine) - Closed Specialty Diagnoses / Procedures Referred By Merissa t Referred To Contact Diagnoses Sleep apnea, unspecified type Procedures Home sleep study Ro Kwong MD [address] [place] [address] Phone: tel: fax: [address] [phone] Phone: tel: Referral ID Status Reason Start Date Expiration Date Visits Re quested Visits Authorized [id number] Closed 08/03/2024 08/03/2025 1 1 [facility] Summary Purpose Family History No Family History Records FoundNo Family History Records FoundNo Family History Records FoundNo Family History Records FoundNo Family History Records Found Advance Directives Advance Directive Response Recorded Date/ Time Advance Directives No May 11:56am Advance Directive Response Recorded Date/ Time Advance Directives No May 10:56am Chief Complaint and Reason for Visit Chief Complaint Amb Documentation pain in sternum R10.11 Reason for Visit RUQ abdominal pain Chief Complaint Amb Documentation pain in sternum R10.11 R10.11 Reason for Visit RUQ abdominal pain Chief Complaint med refills Reason for Visit Adult ADHD Bruising Hypothyroidism Wellness examination Chief Complaint med refills R12 R10.0 Reason for Visit Adult ADHD Bruising Hypothyroidism Wellness examination Chief Complaint Admit Date knee pain February 12, 2025 9: 32am Reason for Visit Admit Date Right knee pain February 12, 2025 9: 32am Additional Source Comments INFORMATION SOURCE (unrecogn ized section and content) DATE CREATED AUTHOR 03/22/2021 [facility] DATE CREATED AUTHOR AUTHOR'S ORGANIZ ATION 09/21/2024 [facility] DATE CREATED AUTHOR AUTHOR'S ORGANIZ ATION 10/26/2024 [facility] DATE CREATED AUTHOR AUTHOR'S ORGANIZ ATION 11/15/2024 [facility] DATE CREATED AUTHOR AUTHOR'S ORGANIZ ATION 11/28/2024 [facility] EPIC REASON FOR VISIT (unrecogniz ed section and content) Reason Onset Date Comments Sleep Lab 07/24/2024 HST Reason Comments New Patient HST: 09/16/2024No PA P therapyNo Oral Appliances Reason Comments Follow-up Lt pf/pb Reason Comments New Med Request Care Teams (unrecognized sec tion and content) Team Status: Active Member Role Status Dates Ro Kwong MD Primary Care Provider Active Team Status: Inactive Member Role Status Dates Ro Kwong MD Primary Care Provide r, Attending Provider Active Start: December 30, 2023 End: December 30, 2023 Team Status: Active Member Role Status Dates Ro Kwong MD Primary Care Provider Active Start: August 20, 2023 ETIENNE Hoyt Attending Provider Active Start : August 20, 2023 Team Status: Inactive Member Role Status Dates Ro Kwong MD Primary Care Provide r, Attending Provider Active Start: August 28, 2023 End: August 28, 2023 Team Status: Inactive Member Role Status Dates Ro Kwong MD Primary Care Provide r, Attending Provider Active Start: August 30, 2023 End: August 30, 2023 Team Status: Inactive Member Role Status Dates Ro Kwong MD Primary Care Provide r, Attending Provider Active Start: September 16, 2023 End: September 16, 2023 Team Status: Active Member Role Status Dates Ro Kwong MD Primary Care Provide r, Attending Provider Active Start: January 03, 2024 Team Status: Inactive Member Role Status Dates Sravan Abdi DO Attending Provider Active Start : January 16, 2024 End: January 16, 2024 Locate Technician Relationship Specialty Start Date End Date Ro Kwong MD PCP - General Family Medicine 09/25/23 01/23/24 Ro Kwong MD [address] [place] [phone] PCP - General Family Medicine 01/24/24 Team Status: Inactive Member Role Status Dates Ro Kwong MD Primary Care Provide r, Attending Provider Active Start: July 23, 2024 End: July 23, 2024 Team Status: Active Member Role Status Dates Ro Kwong MD Primary Care Provide r, Attending Provider Active Start: July 29, 2024 Team Status: Inactive Member Role Status Dates Ro Kwong MD Primary Care Provide r, Attending Provider Active Start: October 20, 2024 End: October 20, 2024 Locate Technician Relationship Specialty Start Date End Date Ro Kwong MD [address] [place] [id number] PCP - General Family Medicine 01/24/24 Locate Technician Relationship Specialty Start Date End Date Ro Kwong MD [address] [facility] [place] [phone] PCP - General Family Medicine 01/24/24 Locate Technician Relationship Specialty Start Date End Date Ro Kwong MD [address] [place] [facility] [phone] PCP - General Family Medicine 01/24/24 Team Status: Inactive Member Role Status Dates Ro Kwong MD Primary Care Provider Active Start: February 12, 2025 End: February 12, 2025 Ro Kwong MD Attending Provider Active St art: February 12, 2025 End: February 12, 2025 Goals (unrecognized section and content) Goals may be documented in a n alternate section FOR RECORDS PERTAINING TO PATIENTS WHO ARE OR HAVE BEEN ENROLLED IN A CHEMICAL DEPENDENCY/SUBSTANCEABUSE PROGRAM, SOME INFORMATION MAY BE OMITTED. This clinical summary was aggregated from multiple sources. Caution should be exercised in using it in the provision of clinical care. This summary normalizes information from multiple sources, and as a consequence, information in this document may materially change the coding, format and clinical context of patient data. In addition, data may be omitted in some cases. CLINICAL DECISIONS SHOULD BE BASED ON THE PRIMARY CLINICAL RECORDS. [employer] [facility]. provides no warranty or guarantee of the accuracy or completeness of information in this document.
== END 2025-02-12 16:33 | disposition home or self-care (01) ==
PROVIDERS: PCP Family Medicine; Visit Provider Family Medicine
DX: M25.561 Pain in right knee (principal)
CPT/HCPCS: 73564